=== PATIENT | female | born 1980 | race Caucasian/White ===

== ENCOUNTER 2023-11-17 20:02 | Day surgery (SDC) | payer BC ==
[2023-11-17 20:32] VITALS: BMI 34.7
[2023-11-17] MEDS ORDERED: hydrALAZINE 20 MG/ML VIAL SLOW IVP PRN (21:13)
== END 2023-11-17 23:40 | disposition home or self-care (01) ==
LOC: CSHLD/OP 20:02
PROVIDERS: ATTEND Student in an Organized Health Care Education/Training Program
DX: O36.8130 Decreased fetal movements, third trimester, not applicable or unspecified (principal); O47.1 False labor at or after 37 completed weeks of gestation; O09.523 Supervision of elderly multigravida, third trimester; O00.01 Abdominal pregnancy with intrauterine pregnancy; O98.513 Other viral diseases complicating pregnancy, third trimester; B00.9 Herpesviral infection, unspecified; Z79.899 Other long term (current) drug therapy; Z79.82 Long term (current) use of aspirin; Z88.8 Allergy status to other drugs, medicaments and biological substances; Z88.5 Allergy status to narcotic agent; Z91.040 Latex allergy status; Z90.49 Acquired absence of other specified parts of digestive tract; Z98.890 Other specified postprocedural states; Z3A.38 38 weeks gestation of pregnancy
CPT/HCPCS: 76819

== ENCOUNTER 2023-11-22 06:00 | Inpatient (IN) | payer BC ==
[2023-11-22 06:21] VITALS: BMI 34.7
[2023-11-22] MEDS ORDERED: Ondansetron PF 4 MG/2 ML Vial IVP PRN ×2 (07:15→23:10)
[2023-11-22] MEDS ORDERED: HYDROcodone/Acetaminophen 5/325 mg Tablet PO PRN ×3 (07:15→23:10)
[2023-11-22] MEDS ORDERED: Lactated Ringer's 1,000 ML IV SCH (07:15)
[2023-11-22] MEDS ORDERED: Lidocaine 1% (PF) 30 ML VIAL SC PRN (07:15)
[2023-11-22] MEDS ORDERED: Diphenoxylate HCl/Atropine Tablet PO PRN (07:15)
[2023-11-22] MEDS ORDERED: fentaNYL 50 mcg/mL 1 mL Vial SLOW IVP PRN (07:15)
[2023-11-22] MEDS ORDERED: Promethazine HCl 25 MG/ML VIAL IM PRN ×2 (07:15→23:10)
[2023-11-22] MEDS ORDERED: hydrALAZINE 20 MG/ML VIAL SLOW IVP PRN ×2 (07:15→23:10)
[2023-11-22] MEDS ORDERED: Misoprostol 200 MCG TAB PR PRN (07:15)
[2023-11-22] MEDS ORDERED: Oxytocin 30 units/NS 500 ML 500 ML IV SCH (07:15)
[2023-11-22] MEDS ORDERED: Carboprost 250 MCG/ML AMP IM PRN (07:15)
[2023-11-22 07:25] LABS: Hematocrit 35.6 % (34.9-44.5); Hemoglobin 11.9 g/dL (12.0-15.5); Mean Corpuscular HGB CONC 33.4 g/dL (32.0-36.0); Mean Corpuscular Hemoglobin 30.2 pg (27.0-33.0); Mean Corpuscular Volume 90.4 fL (81.6-98.3); Mean Platelet Volume 12.8 fL (7.4-10.4); Platelet Count 187 10x3/uL (150-450); RBC Distribution Width 14.4 % (11.5-14.5); Red Blood Cell (RBC) Count 3.94 10x6/uL (3.90-5.03); White Blood Cell (WBC) Count 5.4 10x3/uL (3.5-10.5)
[2023-11-22 07:39] LABS: ALT (SGPT) 15 U/L (8-55); AST (SGOT) 20 U/L (5-34); Albumin 2.9 g/dL (3.5-5.0); Alkaline Phosphatase 219 U/L (40-110); Anion Gap 17 mmol/L (10-20); BUN (Urea Nitrogen) 12 mg/dL (7.0-18.7); Bilirubin, Total 0.4 mg/dL (0.2-1.2); Calc. Creatinine Clearance 125 mL/min (70-130); Calcium 9.3 mg/dL (7.8-10.44); Carbon Dioxide 17 mmol/L (22-29); Chloride 105 mmol/L (98-107); Estimated GFR 94; Globulin 3.5 g/dL (2.4-3.5); Glucose 102 mg/dL (70-105); Potassium 4.2 mmol/L (3.5-5.1); Protein, Total 6.4 g/dL (6.0-8.3); Sodium 135 mmol/L (136-145)
[2023-11-22 07:55] LABS: HBsAg Index 0.17 S/CO (0-0.99); Hep B Surf Ag - L&D Non-Reactive S/CO (NonReactive)
[2023-11-22 07:57] LABS: Syphilis Antibody Nonreactive (Nonreactive); Syphilis Antibody Index 0.04 S/CO (<1.00 Non-Reactive)
[2023-11-22] MEDS: Penicillin G Potassium 5 MILL.UNITS in Sodium Chloride 0.9% 100 ML IVPB SCH (08:00)
[2023-11-22] MEDS: Oxytocin 30 units/NS 500 ML 500 ML IV SCH (08:00)
[2023-11-22] MEDS: Penicillin G 2.5 MILL.units 2.5 MILL.UNITS in Premix 1 BAG IVPB SCH (11:30)
[2023-11-22] MEDS: fentaNYL/Ropivacaine Epidural 100 ML ONE (13:28)
[2023-11-22] MEDS: Ibuprofen 800 MG TAB PO PRN (20:33)
[2023-11-22] MEDS: Acetaminophen 500 MG TAB PO PRN (20:33)
[2023-11-22] MEDS ORDERED: Pseudoephedrine HCl 30 MG TAB PO PRN (20:51)
[2023-11-22] MEDS: Pseudoephedrine HCl 30 MG TAB PO SCH (21:22)
[2023-11-22] MEDS ORDERED: Lanolin Ointment 7 GM TUBE TOP PRN (23:10)
[2023-11-22] MEDS ORDERED: Bisacodyl 10 MG SUPP PR PRN (23:10)
[2023-11-22] MEDS ORDERED: diphenhydrAMINE 25 MG CAP PO PRN (23:10)
[2023-11-22] MEDS ORDERED: Benzocaine-Menthol 82.5 ML CAN TOP PRN (23:10)
[2023-11-22] MEDS ORDERED: Boostrix 0.5 ML (Tdap) VIAL (>/=7 yrs of age) IM ONE (23:10)
[2023-11-22] MEDS ORDERED: Milk Of Magnesia 30 ML UDCUP PO PRN (23:10)
[2023-11-22] MEDS ORDERED: Preparation H Ointment 28 GM TUBE PR PRN (23:10)
[2023-11-23] MEDS ORDERED: Ibuprofen 800 MG TAB PO SCH (06:00)
[2023-11-23] MEDS: Ibuprofen 800 MG TAB PO SCH ×2 (06:12→21:52)
[2023-11-23] MEDS: Ferrous Sulfate 325 MG TAB PO SCH (08:47)
[2023-11-23] MEDS: Prenatal Vitamin 1 TAB PO SCH (10:21)
[2023-11-23] MEDS: Docusate 100 MG CAP PO SCH ×2 (10:22→19:56)
[2023-11-23] MEDS ORDERED: traMADol HCl 50 MG TAB PO PRN ×2 (10:45)
[2023-11-24] MEDS ORDERED: Bupivacaine/Epinephrine 0.25% 30 ML VIAL ONE (10:00)
[2023-11-24 13:05] VITALS: BP 100/58; TEMP 98.2
== END 2023-11-24 14:05 | disposition home or self-care (01) | DRG 805 ==
LOC: CSHLD 06:01 → CSHANTE 11-23 08:15
PROVIDERS: ADMIT Student in an Organized Health Care Education/Training Program; ATTEND Student in an Organized Health Care Education/Training Program
PROC: 10E0XZZ Delivery of Products of Conception, External Approach (ICD-10-PCS; principal; 2023-11-22)
PROC: 0HQ9XZZ Repair Perineum Skin, External Approach (ICD-10-PCS; 2023-11-22)
PROC: 10907ZC Drainage of Amniotic Fluid, Therapeutic from Products of Conception, Via Natural or Artificial Opening (ICD-10-PCS; 2023-11-22)
DX: O99.824 Streptococcus B carrier state complicating childbirth (principal); U07.1 COVID-19; Z37.0 Single live birth; O98.52 Other viral diseases complicating childbirth; O70.0 First degree perineal laceration during delivery; Z3A.39 39 weeks gestation of pregnancy
CPT/HCPCS: 80053; 85027; 86780; 86850; 86900; 86901; 87340; J2540; J2590; J3490